=== PATIENT | female | born 1940 | race Caucasian/White ===

== ENCOUNTER → 2019-03-13 | Outpatient (CLI) | payer MEDICARE, OTHER ==
[2019-03-13 15:01] LABS: ABG BASE EXCESS -0.6 MMOL/L (-2.5-2.5); ABG OXYGEN SATURATION 97 % (94-100); ABG PCO2 37 MMHG (35-45); ABG PH 7.42 (7.37-7.43); ABG PO2 73 MMHG (79-93); ABG TCO2 24.8 MMOL/L (21.0-31.0)
[2019-03-13 15:02] LABS: ALLENS TEST YES-POS; INSPIRED O2 RA; PATIENT TEMP 95.7; VENTILATOR NO
--- NOTE | 2019-03-13 15:19 | NUR ---
Patient arrived on RA and was satting 95%; she walked for 6 mins and did not desat below 89% and then came back up and stayed up. Patient was on RA at rest and on exertion and did not require any O2 at this time
== END ==
LOC: RT 14:28
PROVIDERS: ATTEND Nurse Practitioner Family
DX: J44.9 Chronic obstructive pulmonary disease, unspecified (principal); J30.9 Allergic rhinitis, unspecified; F17.200 Nicotine dependence, unspecified, uncomplicated
CPT/HCPCS: 36600; 82805; 94761

== ENCOUNTER → 2019-04-18 | Outpatient (CLI) | payer MEDICARE, OTHER ==
[~2019-04-18] MED LIST: HOLD METFORMIN - RECEIVED CONTRAST 20 ML VIAL IV SCH; IOHEXOL 350 MG/ML 100 ML (OMNIPAQUE 350) VIAL IV ONE; NS 100 ML (IVPB) BAG IV ONE
[2019-04-18 12:43] LABS: BUN/CREATININE RATIO 19; CREATININE SERUM 0.77 MG/DL (0.60-1.30); GFR ESTIMATED > 60
--- NOTE | 2019-04-18 13:23 | Diagnostic Imaging Report ---
EXAMINATION: CT Chest with intravenous contrast. TECHNIQUE: Multiple contiguous axial images were obtained through the chest after the uneventful administration of intravenous contrast. All CT scans use one or more of the following dose optimizing techniques: automated exposure control, MA and/or KvP adjustment based on a patient size and exam type, or iterative reconstruction. HISTORY: Cough. FINDINGS: No comparison available. Lungs are moderately emphysematous. The lungs are clear without edema or pneumonia. No pleural effusion or pneumothorax. No suspicious nodules. Calcified granuloma seen in the left lower lobe. There is scarring in the right apex. Heart size is normal. No pericardial effusion. Aorta is normal in caliber. There is no axillary, supraclavicular or mediastinal lymphadenopathy. Limited views of the upper abdomen reveal calcified granulomas in the spleen and changes of cholecystectomy. There are no suspicious osseous lesions. IMPRESSION: 1. Emphysematous lungs without acute abnormality. Dictated by: Dictated on workstation # [id number]
== END ==
LOC: RAD 12:08
PROVIDERS: ATTEND Nurse Practitioner Family
DX: J43.9 Emphysema, unspecified (principal); J30.9 Allergic rhinitis, unspecified; F17.200 Nicotine dependence, unspecified, uncomplicated
CPT/HCPCS: 36415; 71260; 82565; 84520